=== PATIENT | female | born 1965 | race Caucasian/White ===

== ENCOUNTER → 2016-09-01 | Outpatient (CLI) | payer OTHER ==
[~2016-09-01] MED LIST: /ATOR40TA OR; /DULO30CA; /DULO30CA OR; /DULO30CA PO; /FENT25PA; /FENT25PA TD; /FENT50PA TD; /METH500TA OR; /MUPINAS; /PANT40TA PO; /PRAV20TA; /ZOLP6ER PO; ALBU2TAB OR; ALBU4TAB5 OR; ALBUPOW9 INH; ALBUTEROL; ALBUTEROL INH; ALBUTEROL LIQ; ALEV220C2 PO; ALLE25CA OR; ALLERGY MED OTC OR; AMBI10TA OR; AMBI12.52 PO; AMIT8CAP4 PO; AMLO10TAB PO; AMLO2.5T PO; ASPI325T OR; ATEN25TA; BACL10TA2 OR; BACL10TA2 PO; BACT2CRE; BRIN1TAB2 PO; BUTA50TA PO; CALCIUM PO; CETI10TA; CHLO0.124 PO; CLAR5CHW; CLAR5CHW PO; CLON-412 PO; COLA100C2 OR; CORTOTSO AD; CYMB1CAP PO; DICL13PA TD; DOCU10CA PO; DULO20CA; DULO30CA PO; DYAZ37.5; DYAZ37.5 OR; ESTE500T PO; ESTE500T7 PO; ESTR3TA PO; ESTR62CR PV; FENT1DIS14 TD; FENT25DI22 TD; FIBE500T2 PO; FISH1000 PO; FLEXERIL PO; FLUOCINONIDE EXT; FLUOCINONIDE TOP; FLUTISP; FOLI400T PO; FURO20TA2 OR; GABA300C2 PO; HYDR25TA8; HYDROMORPHONE PO; IRON PO; IRON325T3 PO; KRIL300C PO; LASI40TA PO; LIDO5DIS; LIDO5DIS EX; LIDO5DIS TD; LOPR50TA; LOPR50TA OR; LOPR50TA PO; LOVA10TA OR; LYRI75CA PO; METH-107 PO; MIRA3350 PO; MIRALEX; MIRALEX OR; MIRALEX PO; MORP15TA4; MORPHINE SULFATE; MULTCAP PO; MULTIVIT OR; NABU500T; NABU500T OR; NASONEX; NIAC500T42 PO; NORV5TAB OR; NUCY100T15 PO; NUCY75TA PO; OXYC10TA12 OR; OXYC10TA12 PO; OXYC10TA97 PO; OXYC15TA76 PO; OXYC1CON PO; OXYCO5TA PO; PRIL20CA OR; PRIS50TA PO; PROV90AE INH; QPAP PO; RANI300T; SENO8.6T5 OR; SERO1TAB3 PO; SOMA350T OR; SOMA350T PO; SPIR25TA2 OR; SPIR25TA2 PO; THERGRAN; THERGRAN PO; TIZA4TAB OR; TOPA25TA PO; TOPI100T; TOPI100T OR; TOPI100T PO; TRAM50TA2 OR; TRAZ100T; TRAZ100T4 PO; TRAZ150T14 PO; TRAZ50TA; TRAZ50TA OR; TRAZADONE PO; TRIC145T19; TRIC145T19 OR; VICO5TAB PO; VISITAB6 PO; VITA100037 PO; VITA100T20 PO; VITA400C2 PO; VITA500T OR; VITA500T3 PO; VITAD1000T PO; VITAMIN B COMPLE1 OR; VITAMIN B COMPLE1 PO; VOLTAREN GEL TOP; Vesicare PO; ZALE5CA PO; ZALEPLON PO; ZANT300T; ZINC50TA22 PO; ZYRT10CA PO; ZYRT10TA6; ZYRT10TA6 OR; clarinex PO; exalgo PO; milk thistle PO
--- NOTE | 2016-09-07 01:51 | ECWPNPC ---
PATIENT NAME: LAW November : 1965 GENDER: FEMALE VISIT DATE: 09/01/2016 DISCHARGE DATE: 09/01/16 1033 VISIT LOCKED DATE TIME: PHYSICIAN: JOSE EID RESOURCE: JOSE EID REASON FOR APPOINTMENT 1. W/C BACK/NECK PAIN HISTORY OF PRESENT ILLNESS HISTORY OF PRESENT ILLNESS: PAIN THE PATIENT DESCRIBES THE PAIN... 51 YEAR OLD FEMALE PATIENT WITH HISTORY OF CHRONIC LOW BACK PAIN. PATIENT DESCRIBES THE PAIN ACHING, TENDER, THROBBING, SORE, SHARP, AND HAVING IT ALL THE TIME WITH A PAIN SCORE OF 7/10. PATIENT WAS HURT IN A WORK RELATED INJURY IN 2014 WHEN SHE FELL DOWN ICY STEPS. MRS. BROWNE HAS TRIED MEDICATION MANAGEMENT, PHYSICAL THERAPY, AND INTERVENTIONS AND NOTHING HAS GIVEN HER LONG LASTING RELIEF. CURRENTLY THE PATIENT IS USING LYRICA FOR PAIN MANAGEMENT AND SHE STATES THAT THE MEDICATION DOES HELP A SIGNIFICANT AMOUNT. PATIENT DENIES UNEXPLAINABLE WEIGHT LOSS, FEVER, CHILLS, NEW CHANGES ON HER URINARY OR BOWEL CONTROL. FALL RISK SCREENING: SCREENING :NO FALLS IN THE PAST YEAR CURRENT MEDICATIONS TAKING LYRICA 75 MG CAPSULE 1 CAPSULE ORALLY TWICE A DAY MDD=2 TAKING OXYCODONE HCL 15 MG TABLET 1 TABLET NEEDED ORALLY TAKE 1 Q 6-8 HRS PRN PAIN MDD=3 TAKING BACLOFEN 10 MG TABLET 1 TABLET WITH FOOD OR MILK ORALLY THREE TIMES A DAY NEEDED FOR SPASMS AND PAIN TAKING COMPLETE MULTI-VITAMIN TABLET CHEWABLE 1 CAP(S) ORALLY DAILY TAKING VITAMIN B-12 1000 MCG TABLET 1 TABLET ORALLY BID TAKING FIBER THERAPY 500 MG TABLET 1 ORALLY DAILY TAKING CETIRIZINE HCL 10 MG TABLET 1 TABLET NEEDED ORALLY ONCE A DAY TAKING FOLIC ACID 400 MCG TABLET 1 TABLET ORALLY ONCE A DAY TAKING VITAMIN D3 2000 UNIT CAPSULE ORALLY BID TAKING IRON 65 MG TABLET ORALLY TWICE A DAY TAKING TRAZODONE HCL ER 150 MG TABLET EXTENDED RELEASE 24 HOUR 1 TABLET AT BEDTIME ON AN EMPTY STOMACH ORALLY ONCE A DAY TAKING FIORICET 50-300-40 MG CAPSULE 1 CAPSULE ORALLY EVERY 8 HRS PRN PAIN MDD=3 TAKING CYMBALTA 60 MG CAPSULE DELAYED RELEASE PARTICLES 1 CAPSULE ORALLY 60MG IN AM AND 30 MG AT BEDTIME TAKING LIDODERM 5 % PATCH APPLY 2 PATCHES TO SKIN ONCE DAILY, ON 12 HOURS OFF 12 HOURS EXTERNAL ON 12 HRS OFF 12 HRS. APPLY TO RIGHT ARM TAKING GABAPENTIN 600 MG TABLET 1 TABLET ORALLY THREE TIMES A DAY TAKING LACTULOSE 10 GM/15ML SOLUTION 15 ML ORALLY ONCE A DAY TAKING TRAMADOL HCL 50 MG TABLET 1 TABLET NEEDED ORALLY EVERY 6 HRS TAKING LINZESS 145 MCG CAPSULES 1 CAPSUL P.O. DAILY NOT-TAKING COLACE 100 MG CAPSULE 2 CAPSULE ORALLY TWICE DAILY NOT-TAKING VALIUM 5 MG TABLET 2 TABLET ORALLY TAKE 2 TABS ON ARRIVAL FOR PROCEDURE MDD=2, NOTES: 06/19/16 0900 NOT-TAKING BRINTELLIX 20 MG TABLET 1 TABLET ORALLY ONCE A DAY NOT-TAKING LYRICA 100 MG CAPSULE (SCHEDULE V DRUG) ORAL NOT-TAKING LYRICA 75 MG CAPSULE 1 CAPSULE ORALLY TWICE A DAY NOT-TAKING GABAPENTIN 400 MG CAPSULE 1 CAPSULE ORALLY THREE TIMES A DAY NOT-TAKING DOCQLACE 100 MG CAPSULE ORAL NOT-TAKING GABAPENTIN 100 MG TABLET TAKE ONE TABLET THREE TIMES DAILY ORAL PRN UNKNOWN LIDODERM 5 % PATCH 3 PATCHS EXTERNALLY ON 12 HRS/OFF 12 HRS MARICRUZ MEDICATION LIST REVIEWED AND RECONCILED WITH THE PATIENT PAST MEDICAL HISTORY ASTHMA HYPERTENSION SLEEP APNEA [place] HAS LOOP RECORDER IMPLANTED ALLERGIES FLEXERIL: HIVES METHYLPHENIDATE: PALPITATION, EXTREME ANXIETY CELEBREX: HIVE, SHORTNESS OF BRETH MORPHINE SULFATE: ALTERED LOC: SIDE EFFECTS SURGICAL HISTORY GASTRIC BYPASS 2014 TOTAL HYSTERECTOMY 2008 TOTAL RIGHT KNEE REPLACEMENT 2010 CHOLESYSTECTOMY 2010 APPENDECTOMY 2010 RIGHT ELBOW SURGERY 2006 LIVER BX WITH COMPLICATIONS 2015 FAMILY HISTORY NO FAMILY HISTORY DOCUMENTED. SOCIAL HISTORY TOBACCO USE ARE YOU A:NONSMOKER LEARNING BARRIERS / SPECIAL NEEDS ORIENTED TO PLAN OF CARE: PATIENT, PAIN MANAGEMENT PATIENT, ORIENTED TO PLAN OF CARE: PATIENT, PAIN MANAGEMENT PATIENT. NEW PATIENT PAIN DIARY TODAY'S VISITNOTES FROM 0-10, WHAT LEVEL IS YOUR PAIN TODAY?0 PAIN CLINIC PFS, CLERGY, PUBLIC HEALTH REFERRALS PFS REFERRAL NEEDED?NO CLERGY REFERRAL NEEDED?NO PUBLIC HEALTH REFERRAL NEEDED?NO WAS THE PROVIDER NOTIFIED OF ANY PERTINENT INFO?NO PFS REFERRAL NEEDED?NO CLERGY REFERRAL NEEDED?NO PUBLIC HEALTH REFERRAL NEEDED?NO WAS THE PROVIDER NOTIFIED OF ANY PERTINENT INFO?NO HOSPITALIZATION/MAJOR DIAGNOSTIC PROCEDURE COMPLICATIONS POST LIVER BX 2016 DIALYSIS FOR 2 MONTHS RT ARM CARPEL TUNNEL WITH ABXCESS DRAINAGE 2016 REVIEW OF SYSTEMS CONSTITUTIONAL: ANY CHANGE IN YOUR MEDICAL CONDITION? YES, BLEEDING FROM SURGERY FROM DEVIATED SEPTUM 1 WEEK AGO AND PACKING REMOVED 08/31/16 . CHILLS NO . FEVER NO . INFECTION: DO YOU HAVE NEW INFECTIONS? NO . DO YOU HAVE HISTORY OF MRSA? NO . MUSCULOSKELETAL: ANY NEW PATTERNS OF PAIN OR NUMBNESS? NO . GASTROENTEROLOGY: ANY NEW CHANGE IN BOWEL CONTROL? NO . GENITOURINARY: ANY NEW CHANGE IN BLADDER CONTROL? NO . IS THERE A CHANCE YOU COULD BE ? NO . HEMATOLOGY/LYMPH: DO YOU TAKE ANY BLOOD THINNERS? (FOR EXAMPLE- COUMADIN, PLAVIX, AGGRENOX, PLATEL, PRADAXA, OR XARELTO) NO . WHEN WAS YOUR LAST DOSE? DATE: TIME: . NEUROLOGY: HAVE YOU FALLEN IN THE PAST 6 MONTHS? NO . ANY NEW EXTREMITY NUMBNESS OR WEAKNESS? NO . CARDIOLOGY: DO YOU HAVE A PACEMAKER OR DEFIBRILLATOR? YES, LOOP RECORDER, . RESPIRATORY: HAVE YOU BEEN SICK IN THE PAST WEEK? NO . FEVER NO . FLU LIKE SYMPTOMS? NO . COUGH NO . INTEGUMENTARY: DO YOU HAVE ANY RASHES OR OPEN SORES? NO . ALLERGIC/IMMUNO: ARE YOU ALLERGIC TO SHELLFISH OR IV DYE? NO . ANY NEW ALLERGIES? NO . PSYCHIATRIC: DO YOU HAVE THOUGHTS OF HURTING YOURSELF OR SOMEONE ELSE? NO . ARE YOU ABUSED, NEGLECTED, OR IN AN UNSAFE ENVIRONMENT? NO . ENDOCRINOLOGY: ARE YOU DIABETIC? NO . OTHER: DO YOU NEED ANY PRESCRIPTIONS? NO . IF YES, PLEASE LIST: ____ . ANY NEW PROBLEMS WITH YOUR MEDICATIONS? NO . WHEN DID YOU LAST EAT? ____ . WHEN DID YOU LAST DRINK? ____ . WHAT DID YOU LAST DRINK? ____ . NAME OF PERSON DRIVING YOU HOME? ____ . DO YOU HAVE ANY OTHER QUESTIONS OR CONCERNS NO . REVIEWED BY: PROVIDER: JOSE EID MD . VITAL SIGNS WT 172 LBS, HT 63", BMI 30.47 INDEX, BP 143/83 MM HG, HR 81 /MIN, RR 16 /MIN, TEMP 97.3 F, OXYGEN SAT % 98, NA INITIALS TL 0931, REVIEWED BY: CS. EXAMINATION : PATIENT IS ALERT O X 3 AND COOPERATIVE. TENDERNESS IN THE LOW BACK AND PARASPINAL MUSCLE GROUP. PATIENT LIMPING FROM RIGHT LEG. PATIENT ABLE TO FLEX BACK 30 DEGREES AND EXTEND 10 DEGREES WITH DISCOMFORT. MRI OF THE LUMBAR SPINE DONE ON 08/09/16 SHOWS PROMINENT EDEMA. 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 BROWNE'S PAIN MANAGEMENT CASE. AT THIS TIME THE PATIENT WILL CONTINUE WITH THE SAME MEDICATION REGIME BEFORE. PATIENT'S URINE TOXICOLOGY REPORT DONE ON 07/2016 SHOWS CONCORDANT RESULTS WITH THE PATIENTS MEDICATION LIST. WE DISCUSSED MOVING FORWARD WITH THE DCS AND ONCE WE HAVE APPROVAL FOR THE PSYCHOLOGICAL EVALUATION FROM WORKERS COMPENSATION I WILL REFER THE PATIENT TO DR. COOPER'S. PATIENT ALSO NEEDS TO HAVE A THORACIC MRI DONE TO SEE IF THEIR IS ENOUGH ROOM FOR THE LEADS TO PASS THROUGH. IN THE MEAN TIME THE PATIENT MAY BENEFIT FROM A LUMBAR FACET BLOCK DUE TO THE ARTHRITIS. WE DISCUSSED THE RISKS, BENEFITS, AND ALTERNATIVES TO THE INJECTION AND THE PATIENT WOULD LIKE TO PROCEED. INSTRUCTIONS WERE GIVEN, QUESTIONS WERE ANSWERED, PATIENT REPORTS UNDERSTANDING AND AGREES WITH THE PLAN. I, MICHELLE ORTIZ, DOCUMENTED THE ABOVE INFORMATION ACTING A SCRIBE FOR DR. EID. I HAVE REVIEWED THE ABOVE DOCUMENT, WRITTEN BY MICHELLE FLYNN AND I VERIFY THAT IT IS ACCURATE. OTHERS REFILL LYRICA CAPSULE, 75 MG, 1 CAPSULE, ORALLY FOR PAIN, TWICE A DAY MDD=2, 30 DAY(S), 60, REFILLS 2 PROCEDURES PN WORKMANS' COMP OPINION IN YOUR OPINION, WAS THE INCIDENT THAT THE PATIENT DESCRIBED THE COMPETENT MEDICAL CAUSE OF THIS INJURY/ILLNESS? YES ARE THE PATIENT'S COMPLAINTS CONSISTENT WITH HIS/HER HISTORY OF THE INJURY/ILLNESS? YES IS THE PATIENT'S HISTORY OF THE INJURY/ILLNESS CONSISTENT WITH YOUR OBJECTIVE FINDING? YES WHAT IS THE PERCENTAGE OF TEMPORARY IMPAIRMENT? TOTAL = 100% IS THE PATIENT WORKING? NO DOCTOR ON SITE: JOSE HOBSON MD PROCEDURE CODES FA211 ESTABILISHED PATIENT [facility] FACILITY CHARGE G8427 DOC MEDS VERIFIED W/PT OR RE G6679 PAIN ASSESS POS TOOL F/U PLAN DOC FOLLOW UP LFBT AFTER APPROVAL ELECTRONICALLY SIGNED BY JOSE EID MD ON 09/06/2016 AT 09:01 AM EST DISCLAIMER : THIS IS A VISIT SUMMARY EXTRACTED FROM THE [employer] CHART. IT IS NOT A COPY OF THE [employer] PROGRESS NOTE. ELIJAH
== END ==
LOC: M PAIN 09:20
PROVIDERS: ATTEND Anesthesiology
DX: Z09 Encounter for follow-up examination after completed treatment for conditions other than malignant neoplasm (principal); G89.21 Chronic pain due to trauma; M51.16 Intervertebral disc disorders with radiculopathy, lumbar region; M47.816 Spondylosis without myelopathy or radiculopathy, lumbar region; M47.817 Spondylosis without myelopathy or radiculopathy, lumbosacral region; J45.909 Unspecified asthma, uncomplicated; I10 Essential (primary) hypertension; G47.30 Sleep apnea, unspecified; I25.2 Old myocardial infarction; Z88.8 Allergy status to other drugs, medicaments and biological substances; Z79.891 Long term (current) use of opiate analgesic; Z79.899 Other long term (current) drug therapy; Z95.818 Presence of other cardiac implants and grafts

== ENCOUNTER → 2016-09-11 | Outpatient (CLI) | payer OTHER ==
[~2016-09-11] MED LIST changes: +BRIN10TA PO; -BRIN1TAB2 PO; +OXYC-517 PO; -OXYCO5TA PO
--- NOTE | 2016-09-15 00:11 | ECWPNPC ---
PATIENT NAME: November : 1965 GENDER: FEMALE VISIT DATE: 09/11/2016 DISCHARGE DATE: 09/11/16 1252 VISIT LOCKED DATE TIME: PHYSICIAN: JOSE EID RESOURCE: JOSE EID REASON FOR APPOINTMENT 1. RIGHT ARM PAIN W/C HISTORY OF PRESENT ILLNESS HISTORY OF PRESENT ILLNESS: PAIN THE PATIENT DESCRIBES THE PAIN... 51 YEAR OLD FEMALE PATIENT WITH HISTORY OF CHRONIC RIGHT ARM PAIN. PATIENT DESCRIBES THE PAIN ACHING, BURNING, TENDER, SORE, AND HAVING IT ALL THE TIME WITH A PAIN SCORE OF 8/10. PATIENT WAS HURT IN A WORK RELATED INJURY IN 2004 WHEN WORKING A [employer]PER[employer] AND GOT HER ARM STUCK IN BETWEEN A BED AND THE RAILING. PATIENT REPORTS THAT INJECTIONS DO NOT HELP WITH THE ARM PAIN. CURRENTLY THE PATIENT IS USING LIDODERM PATCHES, OXYCODONE, AND LYRICA WHICH SHE STATES DOES HELP TO TAKE THE EDGE OFF. PATIENT STATES THAT ANY MOVEMENT OF THE ARM INCREASES HER PAIN AND AT THIS TIME MEDICATIONS IS THE ONLY THING THAT HELPS TO RELIEVE THE PAIN. PATIENT DENIES UNEXPLAINABLE WEIGHT LOSS, FEVER, CHILLS, NEW CHANGES ON HER URINARY OR BOWEL CONTROL. FALL RISK SCREENING: SCREENING :NO FALLS IN THE PAST YEAR CURRENT MEDICATIONS TAKING LYRICA 75 MG CAPSULE 1 CAPSULE ORALLY FOR PAIN TWICE A DAY MDD=2 TAKING OXYCODONE HCL 15 MG TABLET 1 TABLET NEEDED ORALLY TAKE 1 Q 6-8 HRS PRN PAIN MDD=3 TAKING BACLOFEN 10 MG TABLET 1 TABLET WITH FOOD OR MILK ORALLY THREE TIMES A DAY NEEDED FOR SPASMS AND PAIN TAKING COMPLETE MULTI-VITAMIN TABLET CHEWABLE 1 CAP(S) ORALLY DAILY TAKING VITAMIN B-12 1000 MCG TABLET 1 TABLET ORALLY BID TAKING FIBER THERAPY 500 MG TABLET 1 ORALLY DAILY TAKING CETIRIZINE HCL 10 MG TABLET 1 TABLET NEEDED ORALLY ONCE A DAY TAKING FOLIC ACID 400 MCG TABLET 1 TABLET ORALLY ONCE A DAY TAKING VITAMIN D3 2000 UNIT CAPSULE ORALLY BID TAKING IRON 65 MG TABLET ORALLY TWICE A DAY TAKING TRAZODONE HCL ER 150 MG TABLET EXTENDED RELEASE 24 HOUR 1 TABLET AT BEDTIME ON AN EMPTY STOMACH ORALLY ONCE A DAY TAKING FIORICET 50-300-40 MG CAPSULE 1 CAPSULE ORALLY EVERY 8 HRS PRN PAIN MDD=3 TAKING CYMBALTA 60 MG CAPSULE DELAYED RELEASE PARTICLES 1 CAPSULE ORALLY 60MG IN AM AND 30 MG AT BEDTIME TAKING LIDODERM 5 % PATCH APPLY 2 PATCHES TO SKIN ONCE DAILY, ON 12 HOURS OFF 12 HOURS EXTERNAL ON 12 HRS OFF 12 HRS. APPLY TO RIGHT ARM TAKING GABAPENTIN 600 MG TABLET 1 TABLET ORALLY THREE TIMES A DAY TAKING LINZESS 145 MCG CAPSULES 1 CAPSUL P.O. DAILY NOT-TAKING COLACE 100 MG CAPSULE 2 CAPSULE ORALLY TWICE DAILY NOT-TAKING VALIUM 5 MG TABLET 2 TABLET ORALLY TAKE 2 TABS ON ARRIVAL FOR PROCEDURE MDD=2, NOTES: 06/19/16 0900 NOT-TAKING BRINTELLIX 20 MG TABLET 1 TABLET ORALLY ONCE A DAY NOT-TAKING LYRICA 100 MG CAPSULE (SCHEDULE V DRUG) ORAL NOT-TAKING LYRICA 75 MG CAPSULE 1 CAPSULE ORALLY TWICE A DAY NOT-TAKING GABAPENTIN 400 MG CAPSULE 1 CAPSULE ORALLY THREE TIMES A DAY NOT-TAKING DOCQLACE 100 MG CAPSULE ORAL NOT-TAKING GABAPENTIN 100 MG TABLET TAKE ONE TABLET THREE TIMES DAILY ORAL PRN DISCONTINUED LACTULOSE 10 GM/15ML SOLUTION 15 ML ORALLY ONCE A DAY DISCONTINUED TRAMADOL HCL 50 MG TABLET 1 TABLET NEEDED ORALLY EVERY 6 HRS UNKNOWN LIDODERM 5 % PATCH 3 PATCHS EXTERNALLY ON 12 HRS/OFF 12 HRS MARICRUZ MEDICATION LIST REVIEWED AND RECONCILED WITH THE PATIENT PAST MEDICAL HISTORY ASTHMA HYPERTENSION SLEEP APNEA [place] HAS LOOP RECORDER IMPLANTED ALLERGIES FLEXERIL: HIVES METHYLPHENIDATE: PALPITATION, EXTREME ANXIETY CELEBREX: HIVE, SHORTNESS OF BRETH MORPHINE SULFATE: ALTERED LOC: SIDE EFFECTS RITALIN: SEVERE HYPERACTIVE: SIDE EFFECTS SURGICAL HISTORY GASTRIC BYPASS 2014 TOTAL HYSTERECTOMY 2009 TOTAL RIGHT KNEE REPLACEMENT 2010 CHOLESYSTECTOMY 2009 APPENDECTOMY 2009 RIGHT ELBOW SURGERY 2006 LIVER BX WITH COMPLICATIONS 2015 DEVIATED SEPTUM REPAIR 08/16/16 NASAL CAUTERY 08/26/16 FAMILY HISTORY NO FAMILY HISTORY DOCUMENTED. SOCIAL HISTORY GENERAL: TOBACCO USE ARE YOU A:NONSMOKER LEARNING BARRIERS / SPECIAL NEEDS ORIENTED TO PLAN OF CARE: PATIENT, PAIN MANAGEMENT PATIENT, ORIENTED TO PLAN OF CARE: PATIENT, PAIN MANAGEMENT PATIENT. NEW PATIENT PAIN DIARY TODAY'S VISITNOTES FROM 0-10, WHAT LEVEL IS YOUR PAIN TODAY?0 PAIN CLINIC PFS, CLERGY, PUBLIC HEALTH REFERRALS PFS REFERRAL NEEDED?NO CLERGY REFERRAL NEEDED?NO PUBLIC HEALTH REFERRAL NEEDED?NO WAS THE PROVIDER NOTIFIED OF ANY PERTINENT INFO?NO PFS REFERRAL NEEDED?NO CLERGY REFERRAL NEEDED?NO PUBLIC HEALTH REFERRAL NEEDED?NO WAS THE PROVIDER NOTIFIED OF ANY PERTINENT INFO?NO HOSPITALIZATION/MAJOR DIAGNOSTIC PROCEDURE COMPLICATIONS POST LIVER BX 2016 DIALYSIS FOR 2 MONTHS RT ARM CARPEL TUNNEL WITH ABXCESS DRAINAGE 2016 REVIEW OF SYSTEMS CONSTITUTIONAL: ANY CHANGE IN YOUR MEDICAL CONDITION? YES, NASAL SURGERY IN DEC X 2 . CHILLS NO . FEVER NO . INFECTION: DO YOU HAVE NEW INFECTIONS? NO . DO YOU HAVE HISTORY OF MRSA? NO . MUSCULOSKELETAL: ANY NEW PATTERNS OF PAIN OR NUMBNESS? YES, NASAL DUE TO SURGERY . GASTROENTEROLOGY: ANY NEW CHANGE IN BOWEL CONTROL? NO . GENITOURINARY: ANY NEW CHANGE IN BLADDER CONTROL? NO . IS THERE A CHANCE YOU COULD BE ? NO . HEMATOLOGY/LYMPH: DO YOU TAKE ANY BLOOD THINNERS? (FOR EXAMPLE- COUMADIN, PLAVIX, AGGRENOX, PLATEL, PRADAXA, OR XARELTO) NO . WHEN WAS YOUR LAST DOSE? DATE: TIME: . NEUROLOGY: HAVE YOU FALLEN IN THE PAST 6 MONTHS? YES 08/14/ CUT SIDE OF LEFT KNEE AND ACHED ALL OVER . ANY NEW EXTREMITY NUMBNESS OR WEAKNESS? NO . CARDIOLOGY: DO YOU HAVE A PACEMAKER OR DEFIBRILLATOR? NO LOOP RECORDER . RESPIRATORY: HAVE YOU BEEN SICK IN THE PAST WEEK? NO . FEVER NO . FLU LIKE SYMPTOMS? NO . COUGH NO . INTEGUMENTARY: DO YOU HAVE ANY RASHES OR OPEN SORES? YES BILATERAL EARS FROM [place] . ALLERGIC/IMMUNO: ARE YOU ALLERGIC TO SHELLFISH OR IV DYE? NO . ANY NEW ALLERGIES? NO . PSYCHIATRIC: DO YOU HAVE THOUGHTS OF HURTING YOURSELF OR SOMEONE ELSE? NO . ARE YOU ABUSED, NEGLECTED, OR IN AN UNSAFE ENVIRONMENT? NO . ENDOCRINOLOGY: ARE YOU DIABETIC? NO . OTHER: DO YOU NEED ANY PRESCRIPTIONS? YES, OXYCODONE . IF YES, PLEASE LIST: ____ . ANY NEW PROBLEMS WITH YOUR MEDICATIONS? NO . WHEN DID YOU LAST EAT? ____ . WHEN DID YOU LAST DRINK? ____ . WHAT DID YOU LAST DRINK? ____ . NAME OF PERSON DRIVING YOU HOME? ____ . DO YOU HAVE ANY OTHER QUESTIONS OR CONCERNS NO . REVIEWED BY: PROVIDER: JOSE EID MD . VITAL SIGNS WT 174 LBS, HT 63", BMI 30.82 INDEX, BP 139/90 MM HG, HR 89 /MIN, RR 18 /MIN, TEMP 97.7 F, OXYGEN SAT % 93%, NA INITIALS SC 11:06, REVIEWED BY: AD. EXAMINATION : PATIENT IS ALERT O X 3 AND COOPERATIVE. ALLODYNIA OVER RIGHT ARM. ACTIVELY ABDUCT LEFT ARM. PATIENT ABLE TO MOVE RIGHT ARM VERY LIMITED WITH PASSIVE MOVEMENT. TROPHIC CHANGES ON THE RIGHT ARM. LIDODERM PATCHES OVER RIGHT ELBOW AND WRIST AREA. RIGHT HAND SINGLE CORNER CUTTER IS WEAKER THEN THE LEFT. PATIENT PROTECTS RIGHT ARM FROM THE COLD. ASSESSMENTS CHRONIC PAIN OF RIGHT ELBOW - M25.521 (PRIMARY) NEUROPATHY OF RIGHT UPPER EXTREMITY. TREATMENT CHRONIC PAIN OF RIGHT ELBOW REFILL LIDODERM PATCH, 5 %, APPLY 2 PATCHES TO SKIN ONCE DAILY, ON 12 HOURS OFF 12 HOURS, EXTERNAL, ON 12 HRS OFF 12 HRS. APPLY TO RIGHT ARM, 30, 60 UNSPECIFIED, REFILLS 5 REFILL LYRICA CAPSULE, 75 MG, 1 CAPSULE, ORALLY FOR PAIN, TWICE A DAY MDD=2, 30 DAY(S), 60, REFILLS 2 REFILL OXYCODONE HCL TABLET, 15 MG, 1 TABLET NEEDED, ORALLY, TAKE 1 Q 6-8 HRS PRN PAIN MDD=3, 30 DAY(S), 80, REFILLS 0 NOTES: SYMPATHETIC NERVE BLOCK MATERIAL WAS PRINTED. CLINICAL NOTES: WE DISCUSSED SEVERAL ISSUES WITH MRS. BROWNE'S PAIN MANAGEMENT CASE. AT THIS TIME THE PATIENT WILL CONTINUE WITH THE SAME MEDICATION REGIME BEFORE. PATIENT DENIES ABUSE OF ANY MEDICATION, DENIES USE OF ILLEGAL SUBSTANCES, AND STATES THAT SHE IS ONLY USING THE MEDICATION FOR PAIN MANAGEMENT. URINE TOXICOLOGY REPORTS DONE ON 08/03/16 SHOWS CONSISTENT RESULTS WITH THE PATIENT'S MEDICATION LIST. AT THIS TIME THE PATIENT STATES THAT THE STELLATE GANGLION BLOCK IS THE ONLY INJECTION THAT GAVE THE PATIENT RELIEF AND WOULD LIKE TO TRY THE INJECTION AGAIN. WE DISCUSSED THE RISKS, BENEFITS, AND ALTERNATIVES OF THE INJECTION AND THE PATIENT WOULD LIKE TO PROCEED. INSTRUCTIONS WERE GIVEN, QUESTIONS WERE ANSWERED, PATIENT REPORTS UNDERSTANDING AND AGREES WITH THE PLAN. I, MICHELLE ORTIZ, DOCUMENTED THE ABOVE INFORMATION ACTING A SCRIBE FOR DR. EID. I HAVE REVIEWED THE ABOVE DOCUMENT, WRITTEN BY MICHELLE FLYNN AND I VERIFY THAT IT IS ACCURATE. PROCEDURES PN WORKMANS' COMP OPINION IN YOUR OPINION, WAS THE INCIDENT THAT THE PATIENT DESCRIBED THE COMPETENT MEDICAL CAUSE OF THIS INJURY/ILLNESS? YES ARE THE PATIENT'S COMPLAINTS CONSISTENT WITH HIS/HER HISTORY OF THE INJURY/ILLNESS? YES IS THE PATIENT'S HISTORY OF THE INJURY/ILLNESS CONSISTENT WITH YOUR OBJECTIVE FINDING? YES WHAT IS THE PERCENTAGE OF TEMPORARY IMPAIRMENT? TOTAL = 100% IS THE PATIENT WORKING? NO DOCTOR ON SITE: JOSE HOBSON MD PROCEDURE CODES FA211 ESTABILISHED PATIENT [facility] FACILITY CHARGE G8405 DOC MEDS VERIFIED W/PT OR RE [id number] PAIN ASSESS POS TOOL F/U PLAN DOC FOLLOW UP STELLATE GANGLION AFTER APPROVAL ELECTRONICALLY SIGNED BY JOSE EID MD ON 09/14/2016 AT 09:18 AM EST DISCLAIMER : THIS IS A VISIT SUMMARY EXTRACTED FROM THE [employer] CHART. IT IS NOT A COPY OF THE [employer] PROGRESS NOTE. MTDD
== END ==
LOC: M PAIN 11:00
PROVIDERS: ATTEND Anesthesiology
DX: Z09 Encounter for follow-up examination after completed treatment for conditions other than malignant neoplasm (principal); G89.21 Chronic pain due to trauma; M25.521 Pain in right elbow; J45.909 Unspecified asthma, uncomplicated; I10 Essential (primary) hypertension; G47.30 Sleep apnea, unspecified; I25.2 Old myocardial infarction; Z88.5 Allergy status to narcotic agent; Z88.8 Allergy status to other drugs, medicaments and biological substances; Z79.891 Long term (current) use of opiate analgesic; Z79.899 Other long term (current) drug therapy; Z96.9 Presence of functional implant, unspecified

== ENCOUNTER → 2016-09-18 | Outpatient (CLI) | payer OTHER ==
[~2016-09-18] MED LIST changes: +BUPIVACAINE HCL 0.25% 30 ML VIAL As Ordered ONE; +ISOVUE-M 300 61% 15ML VIAL (Q9967) As Ordered ONE; +LIDOCAINE 1% SDV INJ 30 ML VIAL As Ordered ONE; +TRIAMCINOLONE ACETONIDE SUSP 40 MG/ML VIAL (J3301) As Ordered ONE; +diazePAM 5 MG TAB As Ordered ONE; +oxyCODONE 5MG TAB As Ordered ONE
--- NOTE | 2016-09-18 10:18 | REP ---
Partial lumbar spine series: Two views. History: Lumbar facet block for pain. 15 seconds of fluoroscopy time is reported. Findings: A sequence of two fluoroscopically obtained intraprocedural spot radiographs of the lumbar spine document needle position and contrast injection associated with lumbar spine facet injection procedure. Signed by Kunal Connor MD 09/18/2016 10:19 A
--- NOTE | 2016-09-20 23:40 | ECWPNPC ---
PATIENT NAME: LAW November : 1965 GENDER: FEMALE VISIT DATE: 09/18/2016 DISCHARGE DATE: 09/18/16 1024 VISIT LOCKED DATE TIME: PHYSICIAN: JOSE EID RESOURCE: JOSE EID REASON FOR APPOINTMENT 1. LFBT MTG HISTORY OF PRESENT ILLNESS HISTORY OF PRESENT ILLNESS: PAIN THE PATIENT DESCRIBES THE PAIN... FALL RISK SCREENING: SCREENING :NO FALLS IN THE PAST YEAR CURRENT MEDICATIONS TAKING LIDODERM 5 % PATCH APPLY 2 PATCHES TO SKIN ONCE DAILY, ON 12 HOURS OFF 12 HOURS EXTERNAL ON 12 HRS OFF 12 HRS. APPLY TO RIGHT ARM, NOTES: 09/17/16, NOT ON TAKING LYRICA 75 MG CAPSULE 1 CAPSULE ORALLY FOR PAIN TWICE A DAY MDD=2, NOTES: 09/18/16599 TAKING OXYCODONE HCL 15 MG TABLET 1 TABLET NEEDED ORALLY TAKE 1 Q 6-8 HRS PRN PAIN MDD=3, NOTES: 09/22/16599 DR. EID AWARE TAKING BACLOFEN 10 MG TABLET 1 TABLET WITH FOOD OR MILK ORALLY THREE TIMES A DAY NEEDED FOR SPASMS AND PAIN, NOTES: 09/18/16599 TAKING COMPLETE MULTI-VITAMIN TABLET CHEWABLE 1 CAP(S) ORALLY DAILY, NOTES: 09/18/16599 TAKING VITAMIN B-12 1000 MCG TABLET 1 TABLET ORALLY BID, NOTES: 09/18/16599 TAKING FIBER THERAPY 500 MG TABLET 1 ORALLY DAILY, NOTES: 09/17/162099 TAKING CETIRIZINE HCL 10 MG TABLET 1 TABLET NEEDED ORALLY ONCE A DAY, NOTES: 09/18/16599 TAKING FOLIC ACID 400 MCG TABLET 1 TABLET ORALLY ONCE A DAY, NOTES: 09/17/162099 TAKING VITAMIN D3 2000 UNIT CAPSULE ORALLY BID, NOTES: 09/18/16599 TAKING IRON 65 MG TABLET ORALLY TWICE A DAY, NOTES: 09/18/16599 TAKING TRAZODONE HCL ER 150 MG TABLET EXTENDED RELEASE 24 HOUR 1 TABLET AT BEDTIME ON AN EMPTY STOMACH ORALLY ONCE A DAY, NOTES: 09/17/162099 TAKING FIORICET 50-300-40 MG CAPSULE 1 CAPSULE ORALLY EVERY 8 HRS PRN PAIN MDD=3, NOTES: 09/17/16599 TAKING CYMBALTA 60 MG CAPSULE DELAYED RELEASE PARTICLES 1 CAPSULE ORALLY 60MG IN AM AND 30 MG AT BEDTIME, NOTES: 1/23/17 0600 TAKING GABAPENTIN 600 MG TABLET 1 TABLET ORALLY THREE TIMES A DAY, NOTES: 09/18/16 0600 TAKING LINZESS 145 MCG CAPSULES 1 CAPSUL P.O. DAILY, NOTES: 09/18/16 0600 NOT-TAKING COLACE 100 MG CAPSULE 2 CAPSULE ORALLY TWICE DAILY NOT-TAKING VALIUM 5 MG TABLET 2 TABLET ORALLY TAKE 2 TABS ON ARRIVAL FOR PROCEDURE MDD=2, NOTES: 06/19/16 0900 NOT-TAKING BRINTELLIX 20 MG TABLET 1 TABLET ORALLY ONCE A DAY NOT-TAKING LYRICA 100 MG CAPSULE (SCHEDULE V DRUG) ORAL NOT-TAKING LYRICA 75 MG CAPSULE 1 CAPSULE ORALLY TWICE A DAY NOT-TAKING GABAPENTIN 400 MG CAPSULE 1 CAPSULE ORALLY THREE TIMES A DAY NOT-TAKING DOCQLACE 100 MG CAPSULE ORAL NOT-TAKING GABAPENTIN 100 MG TABLET TAKE ONE TABLET THREE TIMES DAILY ORAL PRN UNKNOWN LIDODERM 5 % PATCH 3 PATCHS EXTERNALLY ON 12 HRS/OFF 12 HRS MARICRUZ MEDICATION LIST REVIEWED AND RECONCILED WITH THE PATIENT PAST MEDICAL HISTORY ASTHMA HYPERTENSION SLEEP APNEA DC HAS LOOP RECORDER IMPLANTED ALLERGIES FLEXERIL: HIVES METHYLPHENIDATE: PALPITATION, EXTREME ANXIETY CELEBREX: HIVE, SHORTNESS OF BRETH MORPHINE SULFATE: ALTERED LOC: SIDE EFFECTS RITALIN: SEVERE HYPERACTIVE: SIDE EFFECTS SOCIAL HISTORY GENERAL: TOBACCO USE ARE YOU A:NONSMOKER LEARNING BARRIERS / SPECIAL NEEDS ORIENTED TO PLAN OF CARE: PATIENT, PAIN MANAGEMENT PATIENT, ORIENTED TO PLAN OF CARE: PATIENT, PAIN MANAGEMENT PATIENT. NEW PATIENT PAIN DIARY TODAY'S VISITNOTES FROM 0-10, WHAT LEVEL IS YOUR PAIN TODAY?0 PAIN CLINIC PFS, CLERGY, PUBLIC HEALTH REFERRALS PFS REFERRAL NEEDED?NO CLERGY REFERRAL NEEDED?NO PUBLIC HEALTH REFERRAL NEEDED?NO WAS THE PROVIDER NOTIFIED OF ANY PERTINENT INFO?NO PFS REFERRAL NEEDED?NO CLERGY REFERRAL NEEDED?NO PUBLIC HEALTH REFERRAL NEEDED?NO WAS THE PROVIDER NOTIFIED OF ANY PERTINENT INFO?NO REVIEW OF SYSTEMS CONSTITUTIONAL: ANY CHANGE IN YOUR MEDICAL CONDITION? NO . CHILLS NO . FEVER NO . INFECTION: DO YOU HAVE NEW INFECTIONS? NO . DO YOU HAVE HISTORY OF MRSA? NO . MUSCULOSKELETAL: ANY NEW PATTERNS OF PAIN OR NUMBNESS? NO . GASTROENTEROLOGY: ANY NEW CHANGE IN BOWEL CONTROL? NO . GENITOURINARY: ANY NEW CHANGE IN BLADDER CONTROL? NO . IS THERE A CHANCE YOU COULD BE ? NO . HEMATOLOGY/LYMPH: DO YOU TAKE ANY BLOOD THINNERS? (FOR EXAMPLE- COUMADIN, PLAVIX, AGGRENOX, PLATEL, PRADAXA, OR XARELTO) NO . WHEN WAS YOUR LAST DOSE? DATE: TIME: . NEUROLOGY: HAVE YOU FALLEN IN THE PAST 6 MONTHS? YES PT REPORTS SHE SLIPPED ON THE ICE AND FALLS, SCRAPE ON KNEES, DENIES OTHER INJURIES, NO ED VISIT . ANY NEW EXTREMITY NUMBNESS OR WEAKNESS? NO . CARDIOLOGY: DO YOU HAVE A PACEMAKER OR DEFIBRILLATOR? YES LOOP RECORDER . RESPIRATORY: HAVE YOU BEEN SICK IN THE PAST WEEK? YES SINUS CONGESTION, DENIES FEVER . FEVER NO . FLU LIKE SYMPTOMS? NO . COUGH NO . INTEGUMENTARY: DO YOU HAVE ANY RASHES OR OPEN SORES? NO . ALLERGIC/IMMUNO: ARE YOU ALLERGIC TO SHELLFISH OR IV DYE? NO . ANY NEW ALLERGIES? NO . PSYCHIATRIC: DO YOU HAVE THOUGHTS OF HURTING YOURSELF OR SOMEONE ELSE? NO . ARE YOU ABUSED, NEGLECTED, OR IN AN UNSAFE ENVIRONMENT? NO . ENDOCRINOLOGY: ARE YOU DIABETIC? NO . OTHER: DO YOU NEED ANY PRESCRIPTIONS? NO . IF YES, PLEASE LIST: ____ . ANY NEW PROBLEMS WITH YOUR MEDICATIONS? NO . WHEN DID YOU LAST EAT? ____09/17/16 2400 . WHEN DID YOU LAST DRINK? ____SIPS AT 09/18/16 0600 . WHAT DID YOU LAST DRINK? ____WATER . NAME OF PERSON DRIVING YOU HOME? ____ROBIN . DO YOU HAVE ANY OTHER QUESTIONS OR CONCERNS NO . REVIEWED BY: PROVIDER: . VITAL SIGNS WT 173 LBS, HT 63", BMI 30.64 INDEX, BP 142/80 MANUAL, HR 83 /MIN, RR 16 /MIN, TEMP 97.8 F, OXYGEN SAT % 95, NA INITIALS TL 0844, REVIEWED BY: MARIVEL. ASSESSMENTS SPONDYLOSIS WITHOUT MYELOPATHY OR RADICULOPATHY, LUMBAR REGION - M47.816 (PRIMARY) SPONDYLOSIS WITHOUT MYELOPATHY OR RADICULOPATHY, LUMBOSACRAL REGION - M47.817 PROCEDURES PN LUMBAR FACET BLOCK THERAPEUTIC PRE PROCEDURE DIAGNOSIS LUMBAR SPONDYLOSIS, LUMBOSACRAL SPONDYLOSIS POST PROCEDURE DIAGNOSIS LUMBAR SPONDYLOSIS, LUMBOSACRAL SPONDYLOSIS PROCEDURE BILATERAL L4-L5 AND BILATERAL L5-S1 LUMBAR FACET THERAPEUTIC BLOCK SURGEON DR. JOSE EID PLUG MAKING OPERATOR NONE ANESTHESIA LOCAL PRE PROCEDURE NOTE THE PATIENT HAS A HISTORY OF CHRONIC LOW BACK PAIN. I EVALUATE THE PATIENT AND REVIEWED THE CHART. I WENT OVER THE RISKS, ALTERNATIVES, AND BENEFITS ASSOCIATED WITH THIS PROCEDURE. THE PATIENT WOULD LIKE TO PROCEED AND GIVE CONSENT TO PERFORMED THE PROCEDURE. THE PATIENT DENIES UNEXPLAINABLE WEIGHT LOSS, FEVER, CHILLS, OR NEW CHANGES IN URINARY OR BOWEL CONTROL DESCRIPTION OF PROCEDURE THE PATIENT WAS BROUGHT TO THE PROCEDURE ROOM AND PLACED IN THE PRONE POSITION. THE LUMBOSACRAL AREA WAS CLEANED WITH CHLORAPREP SOLUTION AND DRAPED ASEPTICALLY. THE PROCEDURE WAS DONE UNDER STERILE CONDITIONS. I CHECKED LATERALITY AND THE LEVEL WHERE THE PROCEDURE WAS GOING TO BE PERFORMED WITH THE PATIENT AND THE SUPPORTING STAFF AT THE MOMENT OF THE TIME OUT IN THE PROCEDURE ROOM. UNDER FLUOROSCOPIC GUIDANCE, THE TARGET POINT WAS SELECTED AT THE RIGHT AND LEFT L4-L5 AND RIGHT AND LEFT L5-S1 FACET JOINT. TARGET POINT WAS SELECTED AFTER LATERAL ROTATION AND TILT OF THE MAGNIFIER OF THE C-ARM. LIDOCAINE 0.5% WAS USED TO NUMB THE SKIN AND THE SUBCUTANEOUS TISSUE BELOW IT. SPINAL NEEDLES, 22-GAUGE, WERE ADVANCED UNDER FLUOROSCOPIC GUIDANCE AND FOLLOWING PATIENT FEEDBACK UNTIL THE TARGETS WERE TOUCHED. THE POSITION OF THE NEEDLES WAS VERIFIED WITH AP AND LATERAL VIEWS. AFTER PROPER POSITION OF THE NEEDLES WAS ACHIEVED, ISOVUE-M DYE 30% 0.1 ML WAS INJECTED SHOWING ADEQUATE SPREAD OF THE DYE. THEN A SOLUTION OF 1.9 ML OF BUPIVACAINE 0.125% OF KENALOG 10 MG WAS INJECTED AT EACH SITE. THERE WAS NO EVIDENCE OF BLOOD, PARESTHESIA OR CEREBROSPINAL FLUID DURING THE PROCEDURE. THE PATIENT WAS SENT TO THE RECOVERY ROOM. THE PATIENT WAS MOVING THE EXTREMITIES AND DOING WELL. THERE WAS NO COMPLICATION DURING THE PROCEDURE. FLUOROSCOPY TIME WAS 15 SECONDS POST PROCEDURE NOTE THE PATIENT WILL BE SEEN IN A FOLLOW UP IN THE NEXT FEW WEEKS. INSTRUCTIONS WERE GIVEN, QUESTIONS WERE ANSWERED, AND THE PATIENT EXPRESSED UNDERSTANDING AND AGREES WITH THE PLAN. I, MICHELLE ORTIZ, DOCUMENTED THE ABOVE INFORMATION ACTING A SCRIBE FOR DR. EID. I, DR. EID, HAVE REVIEWED THE ABOVE DOCUMENT, SCRIBED BY MICHELLE ORTIZ, AND I VERIFY THAT IT IS ACCURATE DIAGNOSTIC IMAGING [facility] FACET BLOCK (PAIN)[id number] PROCEDURE CODES 23550 INJ PARAVERT F JNT L/S 1 LEV 82376 INJ PARAVERT F JNT L/S 2 LEV 6045F RADXPS IN END [id number] PXD FOLLOW UP 3 WEEKS ELECTRONICALLY SIGNED BY JOSE EID MD ON 09/20/2016 AT 10:04 PM EST DISCLAIMER : THIS IS A VISIT SUMMARY EXTRACTED FROM THE [employer] CHART. IT IS NOT A COPY OF THE [employer] PROGRESS NOTE. MTDD
== END ==
LOC: M PAIN 09:00
PROVIDERS: ATTEND Anesthesiology
DX: G89.29 Other chronic pain (principal); M47.816 Spondylosis without myelopathy or radiculopathy, lumbar region; M47.817 Spondylosis without myelopathy or radiculopathy, lumbosacral region; M54.5 Low back pain; Z79.891 Long term (current) use of opiate analgesic; Z79.899 Other long term (current) drug therapy; I10 Essential (primary) hypertension; I25.2 Old myocardial infarction; Z95.818 Presence of other cardiac implants and grafts; Z88.6 Allergy status to analgesic agent; Z88.8 Allergy status to other drugs, medicaments and biological substances
CPT/HCPCS: 64493; 64494; J3301; Q9967

== ENCOUNTER → 2016-11-06 | Outpatient (CLI) | payer OTHER ==
[~2016-11-06] MED LIST changes: -BUPIVACAINE HCL 0.25% 30 ML VIAL As Ordered ONE; -ISOVUE-M 300 61% 15ML VIAL (Q9967) As Ordered ONE; -LIDOCAINE 1% SDV INJ 30 ML VIAL As Ordered ONE; -TRIAMCINOLONE ACETONIDE SUSP 40 MG/ML VIAL (J3301) As Ordered ONE; -diazePAM 5 MG TAB As Ordered ONE; -oxyCODONE 5MG TAB As Ordered ONE
--- NOTE | 2016-11-12 23:51 | ECWPNPC ---
PATIENT NAME: LAW November : 1965 GENDER: FEMALE VISIT DATE: 11/06/2016 DISCHARGE DATE: 11/06/16 1611 VISIT LOCKED DATE TIME: PHYSICIAN: JOSE EID RESOURCE: JOSE EID REASON FOR APPOINTMENT 1. BACK/NECK BACK W/C HISTORY OF PRESENT ILLNESS HISTORY OF PRESENT ILLNESS: PAIN THE PATIENT DESCRIBES THE PAIN... 51 YEAR OLD FEMALE PATIENT WITH HISTORY OF CHRONIC BACK PAIN. PATIENT DESCRIBES THE PAIN ACHING, BURNING, STABBING, TENDER, THROBBING, AND HAVING IT ALL THE TIME WITH A PAIN SCORE OF 8/10. PATIENT WAS HURT IN A WORK RELATED INJURY IN 2014 WHEN SHE FELL DOWN ICY STEPS. PATIENT RECEIVED A LUMBAR FACET BLOCK ON 09/18/16 AND REPORTS ONLY HAVING ABOUT 3 DAYS OF RELIEF. MRS. BROWNE HAS TRIED MEDICATION MANAGEMENT, PHYSICAL THERAPY, AND INTERVENTIONS AND NOTHING HAS GIVEN HER LONG LASTING RELIEF. CURRENTLY THE PATIENT IS USING LYRICA FOR PAIN MANAGEMENT AND SHE STATES THAT THE MEDICATION DOES HELP A SIGNIFICANT AMOUNT. PATIENT DENIES UNEXPLAINABLE WEIGHT LOSS, FEVER, CHILLS, NEW CHANGES ON HER URINARY OR BOWEL CONTROL. FALL RISK SCREENING: SCREENING :NO FALLS IN THE PAST YEAR CURRENT MEDICATIONS TAKING LIDODERM 5 % PATCH APPLY 2 PATCHES TO SKIN ONCE DAILY, ON 12 HOURS OFF 12 HOURS EXTERNAL ON 12 HRS OFF 12 HRS. APPLY TO RIGHT ARM, NOTES: 09/17/16, NOT ON TAKING LYRICA 75 MG CAPSULE 1 CAPSULE ORALLY FOR PAIN TWICE A DAY MDD=2, NOTES: 09/18/16599 TAKING OXYCODONE HCL 15 MG TABLET 1 TABLET NEEDED ORALLY TAKE 1 Q 6-8 HRS PRN PAIN MDD=3, NOTES: 09/22/[address] EID AWARE TAKING BACLOFEN 10 MG TABLET 1 TABLET WITH FOOD OR MILK ORALLY THREE TIMES A DAY NEEDED FOR SPASMS AND PAIN, NOTES: 09/18/16599 TAKING COMPLETE MULTI-VITAMIN TABLET CHEWABLE 1 CAP(S) ORALLY DAILY, NOTES: 09/18/16599 TAKING VITAMIN B-12 1000 MCG TABLET 1 TABLET ORALLY BID, NOTES: 09/18/16599 TAKING FIBER THERAPY 500 MG TABLET 1 ORALLY DAILY, NOTES: 09/17/16 2100 TAKING CETIRIZINE HCL 10 MG TABLET 1 TABLET NEEDED ORALLY ONCE A DAY, NOTES: 09/18/16599 TAKING FOLIC ACID 400 MCG TABLET 1 TABLET ORALLY ONCE A DAY, NOTES: 09/17/162099 TAKING VITAMIN D3 2000 UNIT CAPSULE ORALLY BID, NOTES: 09/18/16599 TAKING IRON 65 MG TABLET ORALLY TWICE A DAY, NOTES: 09/18/16599 TAKING TRAZODONE HCL ER 150 MG TABLET EXTENDED RELEASE 24 HOUR 1 TABLET AT BEDTIME ON AN EMPTY STOMACH ORALLY ONCE A DAY, NOTES: 09/17/162099 TAKING FIORICET 50-300-40 MG CAPSULE 1 CAPSULE ORALLY EVERY 8 HRS PRN PAIN MDD=3, NOTES: 09/17/16599 TAKING CYMBALTA 60 MG CAPSULE DELAYED RELEASE PARTICLES 1 CAPSULE ORALLY 60MG IN AM AND 30 MG AT BEDTIME, NOTES: 09/18/16599 TAKING GABAPENTIN 600 MG TABLET 1 TABLET ORALLY THREE TIMES A DAY, NOTES: 09/18/16599 TAKING LINZESS 145 MCG CAPSULES 1 CAPSUL P.O. DAILY, NOTES: 09/18/16599 NOT-TAKING COLACE 100 MG CAPSULE 2 CAPSULE ORALLY TWICE DAILY NOT-TAKING VALIUM 5 MG TABLET 2 TABLET ORALLY TAKE 2 TABS ON ARRIVAL FOR PROCEDURE MDD=2, NOTES: 06/19/16 0900 NOT-TAKING BRINTELLIX 20 MG TABLET 1 TABLET ORALLY ONCE A DAY NOT-TAKING LYRICA 100 MG CAPSULE (SCHEDULE V DRUG) ORAL NOT-TAKING LYRICA 75 MG CAPSULE 1 CAPSULE ORALLY TWICE A DAY NOT-TAKING GABAPENTIN 400 MG CAPSULE 1 CAPSULE ORALLY THREE TIMES A DAY NOT-TAKING DOCQLACE 100 MG CAPSULE ORAL NOT-TAKING GABAPENTIN 100 MG TABLET TAKE ONE TABLET THREE TIMES DAILY ORAL PRN UNKNOWN LIDODERM 5 % PATCH 3 PATCHS EXTERNALLY ON 12 HRS/OFF 12 HRS MARICRUZ MEDICATION LIST REVIEWED AND RECONCILED WITH THE PATIENT PAST MEDICAL HISTORY ASTHMA HYPERTENSION SLEEP APNEA SD HAS LOOP RECORDER IMPLANTED ALLERGIES FLEXERIL: HIVES METHYLPHENIDATE: PALPITATION, EXTREME ANXIETY CELEBREX: HIVE, SHORTNESS OF BRETH MORPHINE SULFATE: ALTERED LOC: SIDE EFFECTS RITALIN: SEVERE HYPERACTIVE: SIDE EFFECTS SURGICAL HISTORY GASTRIC BYPASS 2013 TOTAL HYSTERECTOMY 2008 TOTAL RIGHT KNEE REPLACEMENT 2010 CHOLESYSTECTOMY 2010 APPENDECTOMY 2009 RIGHT ELBOW SURGERY 2007 LIVER BX WITH COMPLICATIONS 2015 DEVIATED SEPTUM REPAIR 08/16/16 NASAL CAUTERY 08/26/16 FAMILY HISTORY NO FAMILY HISTORY DOCUMENTED. SOCIAL HISTORY GENERAL: TOBACCO USE ARE YOU A:NONSMOKER LEARNING BARRIERS / SPECIAL NEEDS ORIENTED TO PLAN OF CARE: PATIENT, PAIN MANAGEMENT PATIENT, ORIENTED TO PLAN OF CARE: PATIENT, PAIN MANAGEMENT PATIENT. NEW PATIENT PAIN DIARY TODAY'S VISITNOTES FROM 0-10, WHAT LEVEL IS YOUR PAIN TODAY?0 PAIN CLINIC PFS, CLERGY, PUBLIC HEALTH REFERRALS PFS REFERRAL NEEDED?NO CLERGY REFERRAL NEEDED?NO PUBLIC HEALTH REFERRAL NEEDED?NO WAS THE PROVIDER NOTIFIED OF ANY PERTINENT INFO?NO PFS REFERRAL NEEDED?NO CLERGY REFERRAL NEEDED?NO PUBLIC HEALTH REFERRAL NEEDED?NO WAS THE PROVIDER NOTIFIED OF ANY PERTINENT INFO?NO HOSPITALIZATION/MAJOR DIAGNOSTIC PROCEDURE COMPLICATIONS POST LIVER BX 2016 DIALYSIS FOR 2 MONTHS RT ARM CARPEL TUNNEL WITH ABXCESS DRAINAGE 2016 REVIEW OF SYSTEMS CONSTITUTIONAL: ANY CHANGE IN YOUR MEDICAL CONDITION? NO . CHILLS NO . FEVER NO . INFECTION: DO YOU HAVE NEW INFECTIONS? NO . DO YOU HAVE HISTORY OF MRSA? NO . MUSCULOSKELETAL: ANY NEW PATTERNS OF PAIN OR NUMBNESS? NO . GASTROENTEROLOGY: ANY NEW CHANGE IN BOWEL CONTROL? NO . GENITOURINARY: ANY NEW CHANGE IN BLADDER CONTROL? NO . IS THERE A CHANCE YOU COULD BE ? NO . HEMATOLOGY/LYMPH: DO YOU TAKE ANY BLOOD THINNERS? (FOR EXAMPLE- COUMADIN, PLAVIX, AGGRENOX, PLATEL, PRADAXA, OR XARELTO) NO . WHEN WAS YOUR LAST DOSE? DATE: TIME: . NEUROLOGY: HAVE YOU FALLEN IN THE PAST 6 MONTHS? YES NO ED EVAL . ANY NEW EXTREMITY NUMBNESS OR WEAKNESS? NO . CARDIOLOGY: DO YOU HAVE A PACEMAKER OR DEFIBRILLATOR? NO . RESPIRATORY: HAVE YOU BEEN SICK IN THE PAST WEEK? NO . FEVER NO . FLU LIKE SYMPTOMS? NO . COUGH NO . INTEGUMENTARY: DO YOU HAVE ANY RASHES OR OPEN SORES? YES ABRASION LEFT HAND . ALLERGIC/IMMUNO: ARE YOU ALLERGIC TO SHELLFISH OR IV DYE? NO . ANY NEW ALLERGIES? NO . PSYCHIATRIC: DO YOU HAVE THOUGHTS OF HURTING YOURSELF OR SOMEONE ELSE? NO . ARE YOU ABUSED, NEGLECTED, OR IN AN UNSAFE ENVIRONMENT? NO . ENDOCRINOLOGY: ARE YOU DIABETIC? NO . OTHER: DO YOU NEED ANY PRESCRIPTIONS? NO . IF YES, PLEASE LIST: ____ . ANY NEW PROBLEMS WITH YOUR MEDICATIONS? NO . WHEN DID YOU LAST EAT? ____ . WHEN DID YOU LAST DRINK? ____ . WHAT DID YOU LAST DRINK? ____ . NAME OF PERSON DRIVING YOU HOME? ____ . DO YOU HAVE ANY OTHER QUESTIONS OR CONCERNS NO . REVIEWED BY: PROVIDER: JOSE EID MD . VITAL SIGNS WT 180 LBS, HT 63", BMI 31.88 INDEX, BP 137/81 MM HG, HR 82 /MIN, RR 16 /MIN, TEMP 98>, OXYGEN SAT % 96%, NA INITIALS SC 1400, REVIEWED BY: MLF. EXAMINATION : PATIENT IS ALERT O X 3 AND COOPERATIVE. TENDERNESS IN THE LOW BACK AND PARASPINAL MUSCLE GROUP. PATIENT LIMPING FROM RIGHT LEG. PATIENT ABLE TO FLEX BACK 30 DEGREES AND EXTEND 10 DEGREES WITH DISCOMFORT. MRI OF THE LUMBAR SPINE DONE ON 08/09/16 SHOWS PROMINENT EDEMA. MRI OF THE THORACIC SPINE DONE ON 09/29/16 SHOWS DEGENERATIVE CHANGES. MRI OF THE CERVICAL SPINE DONE ON 09/28/14 SHOWS MILD DEGENERATIVE DISC AND JOINT DISEASE. ASSESSMENTS SPONDYLOSIS WITHOUT MYELOPATHY OR RADICULOPATHY, CERVICAL REGION - M47.812 (PRIMARY) SPONDYLOSIS WITHOUT MYELOPATHY OR RADICULOPATHY, LUMBAR REGION - M47.816 SPONDYLOSIS WITHOUT MYELOPATHY OR RADICULOPATHY, LUMBOSACRAL REGION - M47.817 INTERVERTEBRAL DISC DISORDERS WITH RADICULOPATHY, LUMBAR REGION - M51.16 TREATMENT SPONDYLOSIS WITHOUT MYELOPATHY OR RADICULOPATHY, CERVICAL REGION REFILL OXYCODONE HCL TABLET, 15 MG, 1 TABLET NEEDED, ORALLY, TAKE 1 Q 6-8 HRS PRN PAIN MDD=3, 30 DAY(S), 90, REFILLS 0, NOTES: 09/22/[address] EID AWARE OTHERS NOTES: WE DISCUSSED SEVERAL ISSUES WITH MRS. BROWNE'S PAIN MANAGEMENT CASE. AT THIS TIME THE PATIENT WILL CONTINUE WITH THE SAME MEDICATION REGIME BEFORE. PATIENT DENIES ABUSE OF ANY MEDICATION, DENIES USE OF ILLEGAL SUBSTANCES, AND STATES THAT SHE IS ONLY USING THE MEDICATION FOR PAIN MANAGEMENT. PATIENT IS AWARE THAT SHE NEED TO BE CAREFUL WHILE USING THIS MEDICATION AND TO AVOID BENZODIAZEPINES WELL ALCOHOL. PATIENT BROUGHT MEDICATION IN THEIR ORIGINAL BOTTLES TO TODAY'S VISIT. WE DISCUSSED MOVING FORWARD WITH THE PATIENT'S DCS TRIAL WE HAVE RECEIVED THE PSYCH EVALUATION FROM DR. COOPER. PATIENT WOULD LIKE TO SPEAK WITH THE REPRESENTATIVES FROM [employer] AND [employer] TO HAVE A BETTER UNDERSTANDING OF THE MACHINE. I WOULD ALSO LIKE TO SPEAK TO THE RADIOLOGIST ABOUT THE PATIENT'S MRI. MRS. BROWNE WILL RETURN TO THE CLINIC IN 4 WEEKS TO SEE WHAT PROGRESS HAS BEEN MADE. INSTRUCTIONS WERE GIVEN, QUESTIONS WERE ANSWERED, PATIENT REPORTS UNDERSTANDING AND AGREES WITH THE PLAN. I, MICHELLE ORTIZ, DOCUMENTED THE ABOVE INFORMATION ACTING A SCRIBE FOR DR. EID. I HAVE REVIEWED THE ABOVE DOCUMENT, WRITTEN BY MICHELLE FLYNN AND I VERIFY THAT IT IS ACCURATE. PROCEDURES PN WORKMANS' COMP OPINION IN YOUR OPINION, WAS THE INCIDENT THAT THE PATIENT DESCRIBED THE COMPETENT MEDICAL CAUSE OF THIS INJURY/ILLNESS? YES ARE THE PATIENT'S COMPLAINTS CONSISTENT WITH HIS/HER HISTORY OF THE INJURY/ILLNESS? YES IS THE PATIENT'S HISTORY OF THE INJURY/ILLNESS CONSISTENT WITH YOUR OBJECTIVE FINDING? YES WHAT IS THE PERCENTAGE OF TEMPORARY IMPAIRMENT? TOTAL = 100% IS THE PATIENT WORKING? NO DOCTOR ON SITE: JOSE HOBSON MD PROCEDURE CODES FA211 ESTABILISHED PATIENT [facility] FACILITY CHARGE G8427 DOC MEDS VERIFIED W/PT OR RE G8730 PAIN ASSESS POS TOOL F/U PLAN DOC DISPOSITION & COMMUNICATION FOLLOW UP 4 WEEKS ELECTRONICALLY SIGNED BY JOSE EID MD ON 11/12/2016 AT 09:03 PM EDT DISCLAIMER : THIS IS A VISIT SUMMARY EXTRACTED FROM THE [employer] CHART. IT IS NOT A COPY OF THE [employer] PROGRESS NOTE. ELIJAH
== END ==
LOC: M PAIN 13:40
PROVIDERS: ATTEND Anesthesiology
DX: Z09 Encounter for follow-up examination after completed treatment for conditions other than malignant neoplasm (principal); G89.29 Other chronic pain; M47.812 Spondylosis without myelopathy or radiculopathy, cervical region; M47.816 Spondylosis without myelopathy or radiculopathy, lumbar region; M47.817 Spondylosis without myelopathy or radiculopathy, lumbosacral region; M51.16 Intervertebral disc disorders with radiculopathy, lumbar region; I10 Essential (primary) hypertension; G47.30 Sleep apnea, unspecified; I25.2 Old myocardial infarction; Z88.5 Allergy status to narcotic agent; Z88.8 Allergy status to other drugs, medicaments and biological substances; Z79.899 Other long term (current) drug therapy; Z95.818 Presence of other cardiac implants and grafts

== ENCOUNTER → 2016-11-14 | Outpatient (CLI) | payer OTHER ==
[~2016-11-14] MED LIST changes: +BUPIVACAINE HCL 0.25% 30 ML VIAL As Ordered ONE; +ISOVUE-M 300 61% 15ML VIAL (Q9967) As Ordered ONE; +LIDOCAINE 1% SDV INJ 30 ML VIAL As Ordered ONE; +MIDAZOLAM INJ 2 MG/2 ML VIAL (J2250) As Ordered ONE; +TRIAMCINOLONE ACETONIDE SUSP 40 MG/ML VIAL (J3301) As Ordered ONE; +fentaNYL 100 MCG/2 ML INJECTION (J3010) As Ordered ONE
--- NOTE | 2016-11-14 17:05 | REP ---
FLUOROSCOPIC GUIDANCE: The images were reviewed with Dr. Mera. The patient has a history of neck pain. The portable C-ARM was provided in the OR by Dr. Henderson for fluoroscopic guidance. 3 intraoperative fluoroscopic spot films were obtained for needle placement verification for left cervical stellate ganglion block. The films are on the PACS system and are available for review. 29 seconds of fluoroscopic time was utilized for this procedure. Reviewed by CHANI Flores 11/15/2016 04:16 PEdited and Signed by Ziggy Mera MD 11/16/2016 12:25 P
--- NOTE | 2016-11-23 01:14 | ECWPNPC ---
PATIENT NAME: LAW November : 1965 GENDER: FEMALE VISIT DATE: 11/14/2016 DISCHARGE DATE: 11/14/16 1650 VISIT LOCKED DATE TIME: PHYSICIAN: JOSE EID RESOURCE: JOSE EID REASON FOR APPOINTMENT 1. STELLATE GANGLION-NECK/AMTREST CURRENT MEDICATIONS TAKING LIDODERM 5 % PATCH APPLY 2 PATCHES TO SKIN ONCE DAILY, ON 12 HOURS OFF 12 HOURS EXTERNAL ON 12 HRS OFF 12 HRS. APPLY TO RIGHT ARM, NOTES: 11-13-16 PM TAKING LYRICA 75 MG CAPSULE 1 CAPSULE ORALLY FOR PAIN TWICE A DAY MDD=2, NOTES: 11-14-16799 TAKING OXYCODONE HCL 15 MG TABLET 1 TABLET NEEDED ORALLY TAKE 1 Q 6-8 HRS PRN PAIN MDD=3, NOTES: 11-14-16799 TAKING BACLOFEN 10 MG TABLET 1 TABLET WITH FOOD OR MILK ORALLY THREE TIMES A DAY NEEDED FOR SPASMS AND PAIN, NOTES: 11-14-16799 TAKING COMPLETE MULTI-VITAMIN TABLET CHEWABLE 1 CAP(S) ORALLY DAILY, NOTES: 11-14-16799 TAKING VITAMIN B-12 1000 MCG TABLET 1 TABLET ORALLY BID, NOTES: 11-13-16 PM TAKING FIBER THERAPY 500 MG TABLET 1 ORALLY DAILY, NOTES: 11-13-16 PM TAKING CETIRIZINE HCL 10 MG TABLET 1 TABLET NEEDED ORALLY ONCE A DAY, NOTES: 11-14-16799 TAKING FOLIC ACID 400 MCG TABLET 1 TABLET ORALLY ONCE A DAY, NOTES: 11-13-16 PM TAKING VITAMIN D3 2000 UNIT CAPSULE ORALLY BID, NOTES: 11-13-16 PM TAKING IRON 65 MG TABLET ORALLY TWICE A DAY, NOTES: 11-14-16799 TAKING TRAZODONE HCL ER 150 MG TABLET EXTENDED RELEASE 24 HOUR 1 TABLET AT BEDTIME ON AN EMPTY STOMACH ORALLY ONCE A DAY, NOTES: 11-13-16 PM TAKING FIORICET 50-300-40 MG CAPSULE 1 CAPSULE ORALLY EVERY 8 HRS PRN PAIN MDD=3, NOTES: 11-14-16799 TAKING CYMBALTA 60 MG CAPSULE DELAYED RELEASE PARTICLES 1 CAPSULE ORALLY 60MG IN AM AND 30 MG AT BEDTIME, NOTES: 11-14-16799 TAKING LINZESS 145 MCG CAPSULES 1 CAPSUL P.O. DAILY, NOTES: 11-14-16799 TAKING GABAPENTIN 600 MG TABLET 1 TABLET ORALLY THREE TIMES A DAY FOR PAIN MDD3, NOTES: 11-14-16 800 DISCONTINUED COLACE 100 MG CAPSULE 2 CAPSULE ORALLY TWICE DAILY DISCONTINUED VALIUM 5 MG TABLET 2 TABLET ORALLY TAKE 2 TABS ON ARRIVAL FOR PROCEDURE MDD=2, NOTES: 06/19/16 0900 DISCONTINUED BRINTELLIX 20 MG TABLET 1 TABLET ORALLY ONCE A DAY DISCONTINUED LYRICA 100 MG CAPSULE (SCHEDULE V DRUG) ORAL DISCONTINUED LYRICA 75 MG CAPSULE 1 CAPSULE ORALLY TWICE A DAY DISCONTINUED GABAPENTIN 400 MG CAPSULE 1 CAPSULE ORALLY THREE TIMES A DAY DISCONTINUED DOCQLACE 100 MG CAPSULE ORAL DISCONTINUED GABAPENTIN 100 MG TABLET TAKE ONE TABLET THREE TIMES DAILY ORAL PRN DISCONTINUED LIDODERM 5 % PATCH 3 PATCHS EXTERNALLY ON 12 HRS/OFF 12 HRS [facility] MEDICATION LIST REVIEWED AND RECONCILED WITH THE PATIENT PAST MEDICAL HISTORY ASTHMA HYPERTENSION SLEEP APNEA [place] HAS LOOP RECORDER IMPLANTED ALLERGIES FLEXERIL: HIVES METHYLPHENIDATE: PALPITATION, EXTREME ANXIETY MORPHINE SULFATE: ALTERED LOC: SIDE EFFECTS RITALIN: SEVERE HYPERACTIVE: SIDE EFFECTS VITAL SIGNS WT 180 LBS, HT 63", BMI 31.88 INDEX, BP 140/73 MM HG, HR 77 /MIN, RR 16 /MIN, TEMP 98.3 F, OXYGEN SAT % 95%, NA INITIALS SC 13:16, REVIEWED BY: CM. ASSESSMENTS PAIN IN RIGHT ELBOW - M25.521 (PRIMARY) PAIN IN RIGHT ARM - M79.601 NEUROPATHY OF RIGHT UPPER EXTREMITY. PROCEDURES PN WORKMANS' COMP OPINION IN YOUR OPINION, WAS THE INCIDENT THAT THE PATIENT DESCRIBED THE COMPETENT MEDICAL CAUSE OF THIS INJURY/ILLNESS? YES ARE THE PATIENT'S COMPLAINTS CONSISTENT WITH HIS/HER HISTORY OF THE INJURY/ILLNESS? YES IS THE PATIENT'S HISTORY OF THE INJURY/ILLNESS CONSISTENT WITH YOUR OBJECTIVE FINDING? YES WHAT IS THE PERCENTAGE OF TEMPORARY IMPAIRMENT? TOTAL = 100% IS THE PATIENT WORKING? NO DOCTOR ON SITE: JOSE HOBSON MD PREPROCEDURE DIAGNOSES: 1. RIGHT ARM NEUROPATHYPOSTPROCEDURE DIAGNOSES: 1. RIGHT ARM NEUROPATHY PROCEDURE: RIGHT STELLATE GANGLION BLOCK UNDER FLUOROSCOPIC GUIDANCE WITH I V SEDATION. SURGEON: JOSE HOBSON MD COMMERCIAL GLAZIER: NONE. ANESTHESIA: LOCAL WITH INTRAVENOUS IV SEDATION. PREOPERATIVE NOTE: THE PATIENT IS WITH HISTORY OF RIGHT ARM PAIN. I WENT THROUGH THE RISKS, ALTERNATIVES, AND BENEFITS ASSOCIATED WITH THIS PROCEDURE. THE PATIENT WANTS TO HAVE IV SEDATION DUE TO ANXIETY AND DISCOMFORT THAT THIS PROCEDURE WILL CAUSE TO HER. THE PATIENT EXPRESSED THAT SHE WOULD LIKE TO PROCEED UNDER IV SEDATION. THE PATIENT DENIES UNEXPLAINABLE WEIGHT LOSS, FEVER, CHILLS, OR CHANGES IN HER URINARY OR BOWEL CONTROL. DESCRIPTION OF PROCEDURE: AFTER CONSENT WAS TAKEN, THE PATIENT WAS BROUGHT TO THE PROCEDURE ROOM AND PLACED IN THE SUPINE POSITION. THE RIGHT NECK AREA WAS CLEANED WITH CHLORAPREP SOLUTION AND DRAPED ASEPTICALLY. THE PROCEDURE WAS DONE UNDER STERILE CONDITIONS. UNDER FLUOROSCOPIC GUIDANCE, TARGET POINT WAS SELECTED AT THE LEVEL APPROXIMATELY OF T7. I ADVANCED A HAVEL 21G ULTRASOUND NEEDLE WITH THE HELP OF AN ULTRASOUND DEVICE. I PUT THE NEEDLE BEHIND THE CAROTID ARTERY AND ANTERIOR TO THE LONGUS COLLI MUSCLE. I USED THE ULTRASOUND TO CHECK THE VASCULAR STRUCTURES AND AVOID NERVES. WHEN APPROPRIATE POSITION OF THE NEEDLE WAS ACHIEVED, ISOVUE M DYE 30%, 1/4 ML, WAS INJECTED SHOWING SPREAD OF THE DYE. THEN A SOLUTION OF 10 ML OF BUPIVACAINE 0.25% AND LIDOCAINE 1%, 50/50 WAS INJECTED WITH KENALOG 40 MG. THE PATIENT RECEIVED FENTANYL 100 MCG IV AND VERSED 2 MG IV IN DIVIDED DOSES. FACE TO FACE TIME WAS 30 MINUTES .THERE WAS NO EVIDENCE OF BLOOD, PARESTHESIA, OR CEREBROSPINAL FLUID. THE PATIENT WAS SENT TO THE RECOVERY ROOM. THE PATIENT WAS MOVING EXTREMITIES AND DOING WELL. THERE WERE NO COMPLICATIONS DURING THE PROCEDURE. THERE WERE NO COMPLICATIONS. FLUOROSCOPY TIME WAS 29 SECONDS POST PROCEDURE NOTE: AFTER THE PROCEDURE, THE PATIENT WAS HAVING EVIDENCE OF PTOSIS, EVIDENCE OF AN ADEQUATE BLOCK. I DISCUSSED ALTERNATIVES. WE WILL SEE THE PATIENT IN A FOLLOWUP. WE ARE LOOKING FOR LONG LASTING PAIN RELIEF WITH THIS INTERVENTION. THERE WERE NO COMPLICATIONS. INSTRUCTIONS WERE GIVEN, QUESTIONS WERE ANSWERED, PATIENT REPORTS UNDERSTANDING AND AGREES WITH THE PLAN. I, AYESHA ASHTON, DOCUMENTED THE ABOVE INFORMATION ACTING A SCRIBE FOR DR. EID. I HAVE REVIEWED THE ABOVE DOCUMENT, WRITTEN BY AYESHA ASHTON SCRIBE AND I VERIFY THAT IT IS ACCURATE. PROCEDURE CODES 19648 N BLOCK STELLATE GANGLION 68244 NEEDLE LOCALIZATION BY XRAY 47652 MOD SED SAME PHYS/QHP 5/>YRS 31613 MOD SED SAME PHYS/QHP EA DISPOSITION & COMMUNICATION FOLLOW UP 3 WEEKS ELECTRONICALLY SIGNED BY JOSE EID MD ON 11/20/2016 AT 05:27 PM EDT DISCLAIMER : THIS IS A VISIT SUMMARY EXTRACTED FROM THE [facility] CHART. IT IS NOT A COPY OF THE [facility] PROGRESS NOTE. MTDD
== END ==
LOC: M PAIN 13:00
PROVIDERS: ATTEND Anesthesiology
DX: M25.521 Pain in right elbow (principal); M79.601 Pain in right arm; Z79.891 Long term (current) use of opiate analgesic; Z79.899 Other long term (current) drug therapy
CPT/HCPCS: 64510; 77003; 99152; 99153; J2250; J3010; J3301; Q9967

== ENCOUNTER → 2016-11-17 | Outpatient (CLI) | payer OTHER, MEDICAID, MEDICARE ==
[~2016-11-17] MED LIST changes: -BUPIVACAINE HCL 0.25% 30 ML VIAL As Ordered ONE; -ISOVUE-M 300 61% 15ML VIAL (Q9967) As Ordered ONE; -LIDOCAINE 1% SDV INJ 30 ML VIAL As Ordered ONE; -MIDAZOLAM INJ 2 MG/2 ML VIAL (J2250) As Ordered ONE; -TRIAMCINOLONE ACETONIDE SUSP 40 MG/ML VIAL (J3301) As Ordered ONE; -fentaNYL 100 MCG/2 ML INJECTION (J3010) As Ordered ONE
--- NOTE | 2016-11-29 01:49 | ECWPNPC ---
PATIENT NAME: LAW November : 1965 GENDER: FEMALE VISIT DATE: 11/17/2016 DISCHARGE DATE: 11/17/16 1403 VISIT LOCKED DATE TIME: PHYSICIAN: VANDANA LITTLE RESOURCE: VANDANA LITTLE REASON FOR APPOINTMENT 1. COSTOCHHONDRITIS HISTORY OF PRESENT ILLNESS HISTORY OF PRESENT ILLNESS: PAIN THE PATIENT DESCRIBES THE PAIN... FALL RISK SCREENING: SCREENING :NO FALLS IN THE PAST YEAR TODAY'S VISIT: NOTES: SEEN TODAY UNDER [facility] FOR NEW BODY PART OF LEFT CHEST WALL PAIN. REPORTS BEGAN HAVING SEVERE LEFT CHEST WALL PAIN ABOUT 6 MONTHS. PAIN DID NOT FOLLOW ANY PARTICULAR TRAUMA, ILLNESS OR COUGHING. DOES EXCESSIVELY USE LEFT ARM AND SIDE OF BODY DUE TO RIGHT ARM ISSUS. HAS STABBING SENSATION OVER RIBS WITH INTERMITTANT RADIATION . MAMMOGRAM, CHEST XRAYS, CARDIAC WORKUP ALL OK. RATES PAIN 7/10 IN THIS AREA. PAIN IS CONSTANT BUT WORSENS WITH TOUCH TO THE AREA, OR WITH LYING ON THE LEFT SIDE. HAS FOUND NOTHING TO RELIEF THIS PAIN. . CURRENT MEDICATIONS TAKING LIDODERM 5 % PATCH APPLY 2 PATCHES TO SKIN ONCE DAILY, ON 12 HOURS OFF 12 HOURS EXTERNAL ON 12 HRS OFF 12 HRS. APPLY TO RIGHT ARM TAKING LYRICA 75 MG CAPSULE 1 CAPSULE ORALLY FOR PAIN TWICE A DAY MDD=2 TAKING OXYCODONE HCL 15 MG TABLET 1 TABLET NEEDED ORALLY TAKE 1 Q 6-8 HRS PRN PAIN MDD=3 TAKING BACLOFEN 10 MG TABLET 1 TABLET WITH FOOD OR MILK ORALLY THREE TIMES A DAY NEEDED FOR SPASMS AND PAIN TAKING COMPLETE MULTI-VITAMIN TABLET CHEWABLE 1 CAP(S) ORALLY DAILY TAKING VITAMIN B-12 1000 MCG TABLET 1 TABLET ORALLY BID TAKING FIBER THERAPY 500 MG TABLET 1 ORALLY DAILY TAKING CETIRIZINE HCL 10 MG TABLET 1 TABLET NEEDED ORALLY ONCE A DAY TAKING FOLIC ACID 400 MCG TABLET 1 TABLET ORALLY ONCE A DAY TAKING VITAMIN D3 2000 UNIT CAPSULE ORALLY BID TAKING IRON 65 MG TABLET ORALLY TWICE A DAY TAKING TRAZODONE HCL ER 150 MG TABLET EXTENDED RELEASE 24 HOUR 1 TABLET AT BEDTIME ON AN EMPTY STOMACH ORALLY ONCE A DAY TAKING FIORICET 50-300-40 MG CAPSULE 1 CAPSULE ORALLY EVERY 8 HRS PRN PAIN MDD=3 TAKING CYMBALTA 60 MG CAPSULE DELAYED RELEASE PARTICLES 1 CAPSULE ORALLY 20 IN AM 60MG PM TAKING LINZESS 145 MCG CAPSULES 1 CAPSUL P.O. DAILY TAKING GABAPENTIN 600 MG TABLET 1 TABLET ORALLY THREE TIMES A DAY FOR PAIN MDD3 TAKING FLUTICASONE PROPIONATE 50 MCG/ACT SUSPENSION 2 SPRAY IN EACH NOSTRIL NASALLY PRN ONCE A DAY PAST MEDICAL HISTORY ASTHMA HYPERTENSION SLEEP APNEA [place] HAS LOOP RECORDER IMPLANTED ALLERGIES FLEXERIL: HIVES METHYLPHENIDATE: PALPITATION, EXTREME ANXIETY MORPHINE SULFATE: ALTERED LOC: SIDE EFFECTS RITALIN: SEVERE HYPERACTIVE: SIDE EFFECTS SURGICAL HISTORY GASTRIC BYPASS 2013 TOTAL HYSTERECTOMY 2008 TOTAL RIGHT KNEE REPLACEMENT 2009 CHOLESYSTECTOMY 2009 APPENDECTOMY 2009 RIGHT ELBOW SURGERY 2006 LIVER BX WITH COMPLICATIONS 2015 DEVIATED SEPTUM REPAIR 08/16/16 NASAL CAUTERY 08/26/16 HOSPITALIZATION/MAJOR DIAGNOSTIC PROCEDURE COMPLICATIONS POST LIVER BX 2016 DIALYSIS FOR 2 MONTHS RT ARM CARPEL TUNNEL WITH ABXCESS DRAINAGE 2016 REVIEW OF SYSTEMS CONSTITUTIONAL: ANY CHANGE IN YOUR MEDICAL CONDITION? NO . CHILLS NO . FEVER NO . INFECTION: DO YOU HAVE NEW INFECTIONS? NO . DO YOU HAVE HISTORY OF MRSA? NO . MUSCULOSKELETAL: ANY NEW PATTERNS OF PAIN OR NUMBNESS? YES NUMBNESS AND PAIN / LEFT CHEST REGION . PATIENT COMPLAINING OF CREDIT COLLECTIONS ANALYST ISSUES UNDER WC WITH RIGHT ELBOW NEURALGIA AND LOW BACK AND THORACIC PAIN. . GASTROENTEROLOGY: ANY NEW CHANGE IN BOWEL CONTROL? NO . ABDOMINAL PAIN S/P GASTRIC BYPASS. HAS HAD GI WORKUP. . GENITOURINARY: ANY NEW CHANGE IN BLADDER CONTROL? NO . IS THERE A CHANCE YOU COULD BE ? NO . HEMATOLOGY/LYMPH: GENERAL S/P LIVER BIOPSY WITH COMPLICATIONS - SIGNIFICANT BLOOD LOSS, RENAL FAILURE, ANOXIC ENEPHALOPATHY AND DID REQUIRE TRANSFUSION THERAPY . DO YOU TAKE ANY BLOOD THINNERS? (FOR EXAMPLE- COUMADIN, PLAVIX, AGGRENOX, PLATEL, PRADAXA, OR XARELTO) NO . WHEN WAS YOUR LAST DOSE? DATE: TIME: . NEUROLOGY: HAVE YOU FALLEN IN THE PAST 6 MONTHS? NO . ANY NEW EXTREMITY NUMBNESS OR WEAKNESS? NO . CARDIOLOGY: DO YOU HAVE A PACEMAKER OR DEFIBRILLATOR? NO -DOES HAVE LOOP RECORDER IN PLACE . RESPIRATORY: HAVE YOU BEEN SICK IN THE PAST WEEK? NO . FEVER NO . FLU LIKE SYMPTOMS? NO . COUGH NO . INTEGUMENTARY: DO YOU HAVE ANY RASHES OR OPEN SORES? YES RIGHT EAR APPLYING BACITRACIN . ALLERGIC/IMMUNO: ARE YOU ALLERGIC TO SHELLFISH OR IV DYE? NO . ANY NEW ALLERGIES? NO . PSYCHIATRIC: DO YOU HAVE THOUGHTS OF HURTING YOURSELF OR SOMEONE ELSE? NO . ARE YOU ABUSED, NEGLECTED, OR IN AN UNSAFE ENVIRONMENT? NO . ENDOCRINOLOGY: ARE YOU DIABETIC? NO . OTHER: DO YOU NEED ANY PRESCRIPTIONS? NO . IF YES, PLEASE LIST: ____ . ANY NEW PROBLEMS WITH YOUR MEDICATIONS? NO . WHEN DID YOU LAST EAT? ____ . WHEN DID YOU LAST DRINK? ____ . WHAT DID YOU LAST DRINK? ____ . NAME OF PERSON DRIVING YOU HOME? ____ . DO YOU HAVE ANY OTHER QUESTIONS OR CONCERNS NO . HEENT: GENERAL RECENT DEVIATED SEPTUM SURGERY . PSYCHOLOGY: DEPRESSION CREDIT COLLECTIONS ANALYST ISSUES, CURRENTLY IN COUNSELING . HIGH STRESS LEVEL FAMILY ISSUES . REVIEWED BY: PROVIDER: VANDANA MCCULLOUGH . VITAL SIGNS WT 182 LBS, HT 63", BMI 32.24 INDEX, BP 156/86 MM HG, HR 92 /MIN, RR 16 /MIN, TEMP 97.4 F, OXYGEN SAT % 92%, NA INITIALS SC11:31. EXAMINATION GENERAL EXAMINATION: PSYCHALERT , ORIENTED X 3 , APPROPRIATE MOOD AND AFFECT . HEENT:NORMOCEPHALIC, NO LYPHADENOPATHY, NO THYROMEGLY. CHEST:EXQUISITE TENDERNESS WITH PALPATION OVER 4TH AND 5TH INTERCOSTAL SPACES, MID CLAVICULAR LINE, LEFT SIDE ONLY. PAIN IS PALPABLE FROM THIS POINT TO NEAR T4-5 SPINOUS PROCESSES. MANY TRIGGER POINTS AND TIGHT FIBROUS BANDS NOTED OVER CHEST WALL LEFT SIDE. IS ABLE TO ELEVATE LEFT ARM GREATER THAN 90 DEGREES. NO SIGNIFICANT TENDERNESS OVER LEFT AC JOINT. ULTRASOUND COORDINATOR STRENGTH SRONG LEFT HAND. HAS VERY LIMITED MOBILITY RIGHT HAND AND ARM.. LUNGS:CLEAR TO AUSCULTATION BILATERALLY, DECREASED RESPIRATORY EXCURSION SECONDARY TO RIB PAIN. NO WHEEZES RALES OR RHONCHI. HEART:NORMAL S1S2, NO MURMURS, CLICK OR RUBS. EXTREMITIES:NO CLUBBING, NO EDEMA, RADIAL AND ULNAR PULSES 2 + LEFT UPPER EXTREMITIES. NEUROLOGIC EXAM:CN'S II-XII GROSSLY INTACT. NO SENSORY CHANGES ARE IDENTIFIED OVER LEFT UPPER EXTREMITY. . 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 PROCEDURE CODES FA211 ESTABILISHED PATIENT [facility] FACILITY CHARGE DISPOSITION & COMMUNICATION FOLLOW UP AFTER INJECTION/ KEEP REGULAR APPOINTMENT SCHEDULED. (REASON: LEFT INTERCOSTAL NERVE BLOCK CHECK AUTH WITH MEDICARE.) ELECTRONICALLY SIGNED BY JAUN MOCTEZUMA ON 11/28/2016 AT 08:58 AM EDT DISCLAIMER : THIS IS A VISIT SUMMARY EXTRACTED FROM THE [facility] CHART. IT IS NOT A COPY OF THE [facility] PROGRESS NOTE. ELIJAH
== END | disposition home or self-care (01) ==
LOC: M PAIN 11:20
PROVIDERS: ATTEND Nurse Practitioner Family
DX: Z09 Encounter for follow-up examination after completed treatment for conditions other than malignant neoplasm (principal); G89.29 Other chronic pain; R07.89 Other chest pain; G58.8 Other specified mononeuropathies; I10 Essential (primary) hypertension; J45.909 Unspecified asthma, uncomplicated; I25.2 Old myocardial infarction; G47.30 Sleep apnea, unspecified; Z98.84 Bariatric surgery status; Z88.2 Allergy status to sulfonamides; Z88.5 Allergy status to narcotic agent; Z88.8 Allergy status to other drugs, medicaments and biological substances; Z79.899 Other long term (current) drug therapy